=== PATIENT | male | born 1970 | race Caucasian/White ===

== ENCOUNTER 2019-12-01 00:22 | Outpatient (CLI) | payer OTHER, SELFPAY ==
[2019-12-01 20:58] LABS: SARS-CoV-2 RNA PCR Negative
== END 2019-12-01 00:23 | disposition home or self-care (01) ==
LOC: ANHCOVIDDT 00:22
PROVIDERS: PCP Nurse Practitioner Family; Visit Provider Internal Medicine Gastroenterology
DX: Z01.812 Encounter for preprocedural laboratory examination (principal); Z11.59 Encounter for screening for other viral diseases
CPT/HCPCS: 87635; C9803; U0003

== ENCOUNTER 2019-12-04 00:45 | Day surgery (SDC) | payer OTHER, SELFPAY ==
--- NOTE | 2019-12-03 16:00 | WPDANESEPP ---
Anes - Eval Pre Procedure Procedure: Operation Date: 12/04/19 07:30 Proposed Procedures p Screening Colonoscopy - Shantanu Montiel MD Date/Time: 12/03/19 16:00 Pre Op Diagnosis: Neoplasm Screening Patient Data Age: 49 Gender: M Height: 1.83 m Weight: Allergies Allergy/AdvReac Type Severity Reaction Status Date / Time No Known Allergies Allergy Unverified 11/24/19 14:46 Home Medications Medication Instructions Recorded Confirmed Type canagliflozin [Invokana] 100 mg PO DAILY 11/24/19 11/24/19 History cinnamon bark [Cinnamon] 500 mg PO DAILY 11/24/19 11/24/19 History lisinopril 10 mg PO DAILY 11/24/19 11/24/19 History metformin 1,000 mg PO BID 11/24/19 11/24/19 History simvastatin 20 mg PO DAILY 11/24/19 11/24/19 History vitamin B complex [B 1 tablet PO DAILY 11/24/19 11/24/19 History Complex-Vitamin B12] Patient hx anesthesia problems: none Family hx anesthesia problems: none PMFSH Past Medical History Medical History HTN (hypertension) Exam Day of Procedure 12/03/19 16:00
[2019-12-04 06:28] VITALS: BMI 30.4
[2019-12-04 06:29] VITALS: BP 139/92; PULSE 81; RESP 18; TEMP 36.4; O2SAT 100
[2019-12-04] MEDS: LACTATED RINGERS 1,000 ML 150 ML IV CONT (06:50)
[2019-12-04 06:59] LABS: Glucose Point of Care 121 (65-105)
--- NOTE | 2019-12-04 07:10 | WPDANESEPPF ---
Anes - Initial Pre Proc Eval Procedure: Operation Date: 12/04/19 07:30 Proposed Procedures p Screening Colonoscopy - Shantanu Montiel MD Date/Time: 12/04/19 07:10 Surgeon: Shantanu Montiel MD Pre Op Diagnosis: Neoplasm Screening Patient Data Age: 49 Gender: M Height: 1.83 m Weight: 101.6 kg Last Vital Signs Temp 36.4 C L 12/04/19 06:29 Pulse 81 12/04/19 06:29 Resp 18 12/04/19 06:29 BP 139/92 H 12/04/19 06:29 Pulse Ox 100 12/04/19 06:29 Allergies Allergy/AdvReac Type Severity Reaction Status Date / Time No Known Allergies Allergy Unverified 11/24/19 14:46 Home Medications Medication Instructions Recorded Confirmed Type canagliflozin [Invokana] 100 mg PO DAILY 11/24/19 12/04/19 History cinnamon bark [Cinnamon] 500 mg PO DAILY 11/24/19 12/04/19 History lisinopril 10 mg PO DAILY 11/24/19 12/04/19 History metformin 1,000 mg PO BID 11/24/19 12/04/19 History simvastatin 20 mg PO DAILY 11/24/19 12/04/19 History vitamin B complex [B 1 tablet PO DAILY 11/24/19 12/04/19 History Complex-Vitamin B12] Laboratory Tests 12/04/19 06:48 POC Capillary Glucose 121 mg/dl H mg/dl (65-105) Patient hx anesthesia problems: none Family hx anesthesia problems: none PMFSH Past Medical History Medical History (Updated 12/04/19 @ 07:11 by Carl Puente MD) Diabetes HTN (hypertension) Hypercholesterolemia Obesity Anes - Eval Final PreProcedure Day of Procedure 12/04/19 07:10 Patient weight: obese Heart: regular rate and rhythm Lungs: clear to auscultation and normal air movement Airway: Mallampati scale class II Neurological: alert and oriented Last oral intake: >/= 8 hours ASA classification: III Emergent: no Anesthetic plan: proceed Anesthesia type and monitoring: general GIVS Informed Consent: The patient's anesthetic plan and its attendant risks and benefits were discussed with the patient/family/POA. Questions were solicited and answers provided to the satisfaction of the patient/family/POA.
--- NOTE | 2019-12-04 07:15 | P.HP_ITS ---
History of Present Illness History of Present Illness Consent: Risks, benefits, and alternatives have been discussed and questions answered. Patient agrees to proceed with procedure. Chief complaint: Neoplasm Screening Narrative: Kenan Buck is a 49 year old W male Referred for his 1st screening colonoscopy. Patient is asymptomatic there is no known family history of colon polyps or colon cancer. [facility] Past Medical History Medical History Diabetes HTN (hypertension) Hypercholesterolemia Obesity Meds Home Medications and Allergies Home Medications Medication Instructions Recorded Confirmed Type canagliflozin [Invokana] 100 mg PO DAILY 11/24/19 12/04/19 History cinnamon bark [Cinnamon] 500 mg PO DAILY 11/24/19 12/04/19 History lisinopril 10 mg PO DAILY 11/24/19 12/04/19 History metformin 1,000 mg PO BID 11/24/19 12/04/19 History simvastatin 20 mg PO DAILY 11/24/19 12/04/19 History vitamin B complex [B 1 tablet PO DAILY 11/24/19 12/04/19 History Complex-Vitamin B12] Allergies Allergy/AdvReac Type Severity Reaction Status Date / Time No Known Allergies Allergy Unverified 11/24/19 14:46 Vital Signs Vital Signs - 24 hr 12/04/19 06:29 Temperature 36.4 C L Pulse Rate 81 Respiratory Rate 18 Blood Pressure 139/92 H Pulse Oximetry 100 Exam Const: Orientation/consciousness: patient oriented x3 Resp: Auscultation: clear to auscultation bilaterally Cardio: Rate: regular rate Rhythm: regular rhythm Heart sounds: no m urmurs GI: GI Palp: Yes Soft to palpation, No Tenderness to palpation present (GI), Yes No hepatosplenomegaly present and No Palpable mass present Auscultation: normal bowel sounds Neuro: General: patient oriented x3 and no focal motor deficits Extrem: General: no pedal edema Assessment and Plan Additional Plan Screening colonoscopy in average risk patient
[2019-12-04] MEDS: SIMETHICONE ORAL SUSPENSION 20 MG/0.3 ML 30 ML BOTTLE 0.6 ML IRRIGATION (07:40)
--- NOTE | 2019-12-04 07:46 | SUR.OPER ---
Resolution clip x1: LOT: [id number], Expiration: 2021-12-24
[2019-12-04 07:55] VITALS: BP 121/80; PULSE 82; RESP 18; O2SAT 97
[2019-12-04 08:05] VITALS: BP 130/85; PULSE 78; RESP 18; O2SAT 99
[2019-12-04 08:15] VITALS: BP 128/93; PULSE 77; RESP 18; O2SAT 99
== END 2019-12-04 08:22 | disposition home or self-care (01) ==
PROVIDERS: PCP Nurse Practitioner Family; Visit Provider Internal Medicine Gastroenterology
PROC: 0DJD8ZZ Inspection of Lower Intestinal Tract, Via Natural or Artificial Opening Endoscopic (ICD-10-PCS; CPT 45378; principal; 2019-12-04 07:30)
DX: Z12.11 Encounter for screening for malignant neoplasm of colon (principal); D12.2 Benign neoplasm of ascending colon; I10 Essential (primary) hypertension; E11.9 Type 2 diabetes mellitus without complications; E78.00 Pure hypercholesterolemia, unspecified; E66.9 Obesity, unspecified; Z68.30 Body mass index [BMI] 30.0-30.9, adult
CPT/HCPCS: 45385; 88305; J2704; J7120